=== PATIENT | female | born 2005 | race Caucasian/White ===

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

== ENCOUNTER 2025-01-02 16:45 | Emergency (ER) | payer OTHER ==
--- NOTE | 2025-01-02 17:41 | ED ---
Female Urogenital HPI - General Source: patient, RN notes reviewed Mode of arrival: ambulatory Limitations: no limitations <Lizette Coulter - Last Filed: 01/02/25 17:41> - General Source: patient, RN notes reviewed, old records reviewed Mode of arrival: ambulatory Limitations: no limitations - History of Present Illness MD Complaint: vaginal bleeding -: days(s) Location: suprapubic Quality: cramping Improves with: none Worsens with: none Patient : No Associated Symptoms: vaginal bleeding - Related Data Sexually active: Yes <Da Esquivel - Last Filed: 01/09/25 18:25> - General Chief complaint: Vaginal Bleeding Stated complaint: Vaginal bleeding Time Seen by Provider: 01/02/25 17:41 - History of Present Illness Initial comments: Quick note: 19-year-old female presented the ER for evaluation of vaginal bleeding. Patient states she started her menstrual cycle on December 22 and ended on December 27. This is a typical cycle for her. She states bleeding subsided for 1 day and then returned with small blood clots on 12 29 24. She states this morning she passed out as well. No blood thinner use. Patient is reporting l ower abdominal pain. Denies . (Lizette Coulter) This is a 19-year-old female to the ER for evaluation of persistent vaginal bleeding with recent bleeding after typical cycle in typical period. Patient is concerned for amount of bleeding as it has been going on for couple days with passing clots. No feelings of lightheadedness dizziness or weakness (Da Mcdonald) - Related Data Previous Rx's Medication Instructions Recorded Lactulose 10 gm PO DAILY #500 ml 07/02/17 Famotidine [Pepcid] 20 mg PO DAILY #10 tablet 11/10/21 Ondansetron Odt [Zofran ODT] 4 mg PO Q8HR PRN #10 tab 11/02/24 Allergies Allergy/AdvReac Type Severity Reaction Status Date / Time latex Allergy Unknown Verified 01/02/25 16:55 Penicillins Allergy Rash/Hives Verified 12/16/21 23:22 Review of Systems ROS Other: All systems not noted in ROS Statement are negative. <Lizette Coulter - Last Filed: 01/02/25 17:41> ROS Other: All systems not noted in ROS Statement are negative. <Da Esquivel - Last Filed: 01/09/25 18:25> ROS Statement: Those systems with pertinent positive or pertinent negative responses have been documented in the HPI. Past Medical History Past Medical History: No Reported History History of Any Multi-Drug Resistant Organisms: None Reported Past Surgical History: No Surgical Hx Reported Past Psychological History: No Psychological Hx Reported Smoking Status: Never smoker Past Alcohol Use History: None Reported Past Drug Use History: None Reported <Lizette Coulter - Last Filed: 01/02/25 17:41> General Exam Limitations: no limitations <Lizette Coulter - Last Filed: 01/02/25 17:41> General appearance: alert, in no apparent distress Head exam: Present: atraumatic, normocephalic, normal inspection Eye exam: Present: normal appearance, PERRL, EOMI. Absent: scleral icterus, c onjunctival injection, periorbital swelling ENT exam: Present: normal exam, mucous membranes moist Neck exam: Present: normal inspection. Absent: tenderness, meningismus, lymphadenopathy Respiratory exam: Present: normal lung sounds bilaterally. Absent: respiratory distress, wheezes, rales, rhonchi, stridor Cardiovascular Exam: Present: regular rate, normal rhythm, normal heart sounds. Absent: systolic murmur, diastolic murmur, rubs, gallop, clicks GI/Abdominal exam: Present: soft, normal bowel sounds. Absent: distended, tenderness, guarding, rebound, rigid Extremities exam: Present: normal inspection, full ROM, normal capillary refill. Absent: tenderness, pedal edema, joint swelling, calf tenderness Back exam: Present: normal inspection Neurological exam: Present: alert, oriented X3, CN II-XII intact Psychiatric exam: Present: normal affect, normal mood Skin exam: Present: warm, dry, intact, normal color. Absent: rash <Da Esuqivel - Last Filed: 01/09/25 18:25> - General Exam Comments Initial Comments: Visual Physical Exam Vital signs reviewed General: Well-appearing, nontoxic, no acute distress. Head: Normocephalic, atraumatic Eyes: PERRLA, EOMI ENT: Airway patent Chest: Nonlabored breathing Skin: No visual rash, normal skin tone Neuro: Alert and oriented 3 Musculoskeletal: No gross abnormalities (Lizette Coulter) Course <Da Esquivel - Last Filed: 01/09/25 18:25> Vital Signs 01/02/25 01/02/25 16:52 19:53 Temperature 98.2 F 98.6 F Pulse Rate 118 H 78 Respiratory 16 18 Rate Blood Pressure 118/79 O2 Sat by Pulse 95 99 Oximetry - Reevaluation(s) Reevaluation #1: Medical records reviewed (Da Esquivel) Reevaluation #2: Patient's symptoms improved (Da Esquivel) Reevaluation #3: Patient informed of results questions answered (Da Esquivel) Reevaluation #4: Was pt. sent in by a medical professional or institution ([facility], [facility], urgent care, hospital, or prison...) When possible be specific @ -no Did you speak to anyone other than the patient for history (EMS, parent, family, police, friend...)? What history was obtained from this source @ -no Did you review nursing and triage notes (agree or disagree)? Why? @ -agree Are old charts reviewed (outside hosp., previous admission, EMS record, old EKG, old radiological studies, urgent care reports/EKG's, prison records)? Report findings @ -yes Differential Diagnosis (chest pain, altered mental status, abdominal pain women, abdominal pain men, vaginal bleeding, weakness, fever, dyspnea, syncope, headache, dizziness, GI bleed, back pain, seizure, CVA, palpatations, mental health, musculoskeletal)? @ -prior EKG interpreted by me (3pts min.). @ -no X-rays interpreted by me (1pt min.). @ -no CT interpreted by me (1pt min.). @ -no U/S interpreted by me (1pt. min.). @ -no What testing was considered but not performed or refused? (CT, X-rays, U/S, labs)? Why? @ -none What meds were considered but not given or refused? Why? @ -none Did you discuss the management of the patient with other professionals (professionals i.e. [facility], [facility], lab, RT, psych nurse, social scientist, breeding technician, teacher, unarmed security officer, wrapper caser)? Give summary @ -no Was smoking cessation discussed for >3mins.? @ -no Was critical care preformed (if so, how long)? @ -no Were there social determinants of health that impacted care today? How? (Homelessness, low income, unemployed, alcoholism, drug addiction, transportation, low edu. Level, literacy, decrease access to med. care, [facility], rehab)? @ -none Was there de-escalation of care discussed even if they declined (Discuss DNR or withdrawal of care, Hospice)? DNR status @ -no What co-morbidities impacted this encounter? (DM, HTN, Smoking, COPD, CAD, Cancer, CVA, ARF, Chemo, Hep., AIDS, mental health diagnosis, sleep apnea, morbid obesity)? @ -none Was patient admitted / discharged? Hospital course, mention meds given and route, prescriptions, significant lab abnormalities, going to OR and other pertinent info. @ - 19 female presenting for vaginal bleeding. No , lab testing normal dysfunctional uterine bleeding noted. Patient can be discharged home Discharged Undiagnosed new problem with uncertain prognosis? @ -no Drug Therapy requiring intensive monitoring for toxicity (Heparin, Nitro, Insulin, Cardizem)? @ -no Were any procedures done? @ -no Diagnosis/symptom? @ -Dysfunctional uterine bleeding Acute, or Chronic, or Acute on Chronic? @ -Acute Uncomplicated (without systemic symptoms) or Complicated (systemic symptoms)? @ -Complicated Side effects of treatment? @ -no Exacerbation, Progression, or Severe Exacerbation? @ -exacerbation Poses a threat to life or bodily function? How? (Chest pain, [place], [place], pneumonia, PE, COPD, DKA, ARF, appy, cholecystitis, CVA, Diverticulitis, Homicidal, Suicidal, threat to staff... and all critical care pts) @ -no (Da Esquivel) Medical Decision Making <Lizette Coulter - Last Filed: 01/02/25 17:41> - Lab Data Result diagrams: 01/02/25 18:27 01/02/25 18:27 <Da Esquivel - Last Filed: 01/09/25 18:25> - Medical Decision Making I performed the quick note portion of this chart. Electronically signed by Lizette Coulter PA-C (Lizette Coulter) 19 female presenting for vaginal bleeding. No , lab testing normal dysfunctional uterine bleeding noted. Patient can be discharged home (Da Esquivel) - Lab Data Lab Results 01/02/25 01/02/25 01/02/25 Range/Units 18:27 18:27 18:34 WBC 11.73 H (4.50-10.00) 10*3/uL RBC 5.41 H (4.10-5.20) 10*6/uL Hgb 15.7 H (12.0-15.0) g/dL Hct 45.8 (37.2-46.3) % MCV 84.7 (80.0-97.0) fL MCH 29.0 (27.0-32.0) pg MCHC 34.3 (32.0-37.0) g/dL Plt Count 441 H (140-440) 10*3/uL MPV 9.9 (9.5-12.2) fL Immature Gran % (Auto) 0.3 % Neutrophils % 74.4 % Lymphocytes % 16.5 % Monocytes % 6.7 % Eosinophils % 0.9 % Basophils % 1.2 % Immature Gran # 0.04 (0.00-0.04) 10*3/uL Neutrophils # 8.71 H (1.80-7.70) 10*3/uL Lymphocytes # 1.94 (0.90-5.00) 10*3/uL Monocytes # 0.79 (0.20-1.00) 10*3/uL Eosinophils # 0.11 (0.04-0.35) 10*3/uL Basophils # 0.14 H (0.00-0.10) 10*3/uL Sodium 142 (137-145) mmol/L Potassium 4.2 (3.5-5.1) mmol/L Chloride 106 (98-107) mmol/L Carbon Dioxide 23 (22-30) mmol/L Anion Gap 13 mmol/L BUN 10 (7-17) mg/dL Creatinine 0.67 (0.52-1.04) mg/dL Est GFR (CKD-EPI)AfAm >90 (>60 ml/min/1.73 sqM) Est GFR (CKD-EPI)NonAf >90 (>60 ml/min/1.73 sqM) Glucose 83 (74-99) mg/dL Calcium 10.2 (8.4-10.2) mg/dL Total Bilirubin 0.8 (0.2-1.3) mg/dL AST 21 (14-36) U/L ALT 14 (4-34) U/L Alkaline Phosphatase 67 (38-126) U/L Total Protein 8.3 H (6.3-8.2) g/dL Albumin 5.1 H (3.5-5.0) g/dL HCG, Quant <2.4 mIU/mL Urine Color Light Yellow Urine Appearance Clear (Clear) Urine pH 6.5 (5.0-8.0) Ur Specific [place] 1.018 (1.001-1.035) Urine Protein Negative (Negative) Urine Glucose (UA) Negative (Negative) Urine Ketones Trace H (Negative) Urine Blood Trace H (Negative) Urine Nitrite Negative (Negative) Urine Bilirubin Negative (Negative) Urine Urobilinogen <2.0 (<2.0) mg/dL Ur Leukocyte Esterase Negative (Negative) Urine RBC 2 (0-5) /hpf Urine WBC 1 (0-5) /hpf Ur Squamous Epith Cells 1 (0-4) /hpf Urine Bacteria Rare H (None) /hpf Urine Mucus Rare H (None) /hpf Disposition <Lizette Coulter - Last Filed: 01/02/25 17:41> Is patient prescribed a controlled substance at d/c from ED?: No Time of Disposition: 19:45 <Da Esquivel - Last Filed: 01/09/25 18:25> Clinical Impression: Dysfunctional uterine bleeding Disposition: HOME SELF-CARE Condition: Good Instructions (If sedation given, give patient instructions): Abnormal (Dysfunctional) Uterine Bleeding (ED) Referrals: Jamie Watson MD [STAFF PHYSICIAN] - 1-2 days
[2025-01-02 18:43] LABS: Basophils # (A) 0.14 10*3/uL (0.00-0.10); Basophils % (A) 1.2 %; Eosinophils # (A) 0.11 10*3/uL (0.04-0.35); Eosinophils % (A) 0.9 %; HCT 45.8 % (37.2-46.3); HGB 15.7 g/dL (12.0-15.0); Lymphocytes # (A) 1.94 10*3/uL (0.90-5.00); Lymphocytes % (A) 16.5 %; MCHC 34.3 g/dL (32.0-37.0); MCV 84.7 fL (80.0-97.0); Mean Platelet Volume 9.9 fL (9.5-12.2); Monocytes # (A) 0.79 10*3/uL (0.20-1.00); Monocytes % (A) 6.7 %; Neutrophils # (A) 8.71 10*3/uL (1.80-7.70); Neutrophils % (A) 74.4 %; Platelet Count 441 10*3/uL (140-440); RBC 5.41 10*6/uL (4.10-5.20); RDW 12.7 % (11.5-14.5); WBC 11.73 10*3/uL (4.50-10.00)
[2025-01-02 18:51] LABS: Appearance,Urine Clear (Clear); Bacteria,Urine Rare /hpf; Bilirubin,Urine Negative (Negative); Blood,Urine Trace (Negative); Color,Urine Light Yellow; Glucose,Urine (UA) Negative (Negative); Ketones,Urine Trace (Negative); Leukocyte Esterase,Urine Negative (Negative); Mucus,Urine Rare /hpf; Nitrite,Urine Negative (Negative); PH, Urine 6.5 (5.0-8.0); Protein,Urine Negative (Negative); RBC,Urine 2 /hpf (0-5); Specific Gravity,Urine 1.018 (1.001-1.035); Squamous Epithelial Cell,Urine 1 /hpf (0-4); Urobilinogen,Urine <2.0 mg/dL (<2.0); WBC,Urine 1 /hpf (0-5)
[2025-01-02 18:54] LABS: ALT 14 U/L (4-34); AST 21 U/L (14-36); African American GFR (CKD) >90 (>60 ml/min/1.73 sqM); Albumin 5.1 g/dL (3.5-5.0); Alkaline Phosphatase 67 U/L (38-126); Anion Gap 13 mmol/L; Blood Urea Nitrogen 10 mg/dL (7-17); Calcium 10.2 mg/dL (8.4-10.2); Carbon Dioxide 23 mmol/L (22-30); Chloride 106 mmol/L (98-107); Glucose 83 mg/dL (74-99); Non-African American GFR(CKD) >90 (>60 ml/min/1.73 sqM); Potassium 4.2 mmol/L (3.5-5.1); Sodium 142 mmol/L (137-145); Total Bilirubin 0.8 mg/dL (0.2-1.3); Total Protein 8.3 g/dL (6.3-8.2)
[2025-01-02 19:10] LABS: HCG,Quantitative Serum <2.4 mIU/mL
[2025-01-02 19:55] VITALS: BP 118/79; PULSE 78; RESP 18; TEMP 98.6
== END 2025-01-02 19:54 | disposition home or self-care (01) ==
LOC: EC 16:45
DX: N93.8 Other specified abnormal uterine and vaginal bleeding (principal); Z91.040 Latex allergy status; Z88.0 Allergy status to penicillin
CPT/HCPCS: 36415; 80053; 81001; 84702; 85025; 99284